=== PATIENT | female | born 1985 | race African-American/Black ===

== ENCOUNTER 2016-09-02 20:04 | Emergency (ER) | payer MEDICAID, OTHER ==
[~2016-09-02] VITALS: Ht 167.6 cm; Wt 60.8 kg
[~2016-09-02 20:04] MED LIST: CIPRO500 MG PO; CIPROFLOXACIN500 M2 ORAL; CYCLOBENZAPRINE10 MG ORAL; DIPHENHYDRAMINE25 M1 ORAL; FLAGYL500 MG ORAL; GLUCOPHAGE500 MG ORAL; HUMULIN R100 UNIT/1 SUBQ; JANUVIA100 MG ORAL; KEFLEX500 MG ORAL; METFORMIN HCL500 M1 ORAL; METROGEL-VAGINA70 G1 VAGIN; NKM; NORCO 5-325 TA1 EACH ORAL; NOVOLOG100 UNIT/3 SUBQ; OMEPRAZOLE20 M2 ORAL; PYRIDIUM100 MG ORAL; REGLAN10 MG ORAL; STARLIX120 MG ORAL; TRAMADOL HCL50 MG ORAL; VICODIN1 TA1 ORAL; ZOFRAN4 MG ORAL
[2016-09-02] MEDS ORDERED: HYDROCODON-ACE1 EA15 ORAL (21:30)
[2016-09-02] MEDS ORDERED: BENADRYL25 MG ORAL (21:30)
--- NOTE | 2016-09-02 21:31 | Emergency Room Report ---
History of Present Illness General Chief Complaint: Back Pain-No Injury Source: Patient Present Illness HPI A 30-year-old female with a history of diabetes. She presents with chief complaint of left leg/calf pain for last week. [place]art tightness. On and off. Also with back pain. No fever chills no nausea no vomiting. Denies any other complaint. Pain is 7/10. Allergies: Coded Allergies: CODEINE (Verified Allergy, Mild, 06/17/14) IBUPROFEN (Verified Allergy, Mild, Hives, 07/20/12) ACETAMINOPHEN (Verified Allergy, Unknown, 12/10/14) HYDROCODONE (Verified Allergy, Unknown, 12/10/14) Patient History Past Medical History: see triage record, old chart reviewed, DM Past Surgical History: other Pertinent Family History: none Social History: Denies: smoking Last Menstrual Period: a month ago Now: No Immunizations: other Reviewed Nursing Documentation: PMH: Agreed, PSxH: Agreed Nursing Documentation-PMH Hx Cardiac Problems: Yes - Abnormal Heart beat Hx Diabetes: Yes Hx Gastrointestinal Problems: Yes - Gallbladder removed Hx Headaches: Yes Review of Systems Eye: Denies: blurred vision, eye pain ENT: Denies: ear pain, nose congestion, throat swelling Respiratory: Denies: cough, shortness of breath Cardiovascular: Denies: chest pain, palpitations Gastrointestinal: Denies: abdominal pain, diarrhea, nausea, vomiting Musculoskeletal: Reports: back pain, Denies: joint pain Skin: Denies: rash Neurological: Denies: headache, numbness Endocrine: Denies: increased thirst, increased urine Hematologic/Lymphatic: Denies: easy bruising All Other Systems: negative except mentioned in HPI Physical Exam Vital Signs Date Time Temp Pulse Resp B/P Pulse Ox O2 Delivery O2 Flow Rate FiO2 09/02/16 20:17 97.9 64 16 111/74 100 Room Air vitals normal Sp02 EP Interpretation: reviewed, normal General Appearance: well appearing, no apparent distress, alert Head: normocephalic, atraumatic Eyes: bilateral eye EOMI, bilateral eye PERRL ENT: hearing grossly normal, normal pharynx Neck: full range of motion, supple, no meningismus Respiratory: chest non-tender, lungs clear, normal breath sounds Cardiovascular #1: regular rate, rhythm, no murmur Gastrointestinal: normal bowel sounds, non tender, no mass, no organomegaly, no bruit, non-distended Musculoskeletal: back normal, gait/station normal, normal range of motion, other - Tenderness to the lateral left calf area. Mild edema. Neurologic: alert, oriented x3 Psychiatric: mood/affect normal Skin: warm/dry Medical Decision Making Diagnostic Impression: Primary Impression: Back pain Qualified Codes: M54.5 - Low back pain Additional Impression: Leg pain, left ER Course Is presents with different pain complaint. No evidence of any fracture dislocation. No evidence of DVT. This may be a neuropathy. We'll discharge home. CT/MRI/US Diagnostic Results CT/MRI/US Diagnostic Results : Imaging Test Ordered: Ultrasound left leg Impression negative for DVT per epic trainer. Last Vital Signs Date Time Temp Pulse Resp B/P Pulse Ox O2 Delivery O2 Flow Rate FiO2 09/02/16 20:17 97.9 64 16 111/74 100 Room Air Status: improved Disposition: HOME, SELF-CARE Condition: Stable Scripts Diphenhydramine Hcl* (BENADRYL*) 25 Mg Capsule 25 MG ORAL Q6H Y for Itching, #20 CAP Prov: JEANETTE AMADO M.D. 09/02/16 Hydrocodone/Acetaminophen 5-325* (HYDROCODONE/ACETAMINOPHEN 5-325*) 1 Each Tablet 1 TAB ORAL Q6H Y for For Pain, #15 TAB 0 Refills Prov: JEANETTE AMADO M.D. 09/02/16 Referrals: [facility],REFERRING (PCP) Patient Instructions: Back Pain, Adult Additional Instructions: Followup with your Dr. in 7 days. Return if symptom worsen. JEANETTE AMADO M.D. Sep 02, 2016 21:30
[2016-09-02 22:40] VITALS: BP 118/78
--- NOTE | 2016-09-04 12:27 | Diagnostic Imaging Report ---
APPROVED REPORT CPT Code: 16672 Present Symptoms Lower Extremity Pain: Left LEFT LEG: Imaging reveals a patent deep venous system . There is no evidence of thrombus within the femoral, popliteal or tibial segments. The greater saphenous veins are also within normal limits. Doppler indicates normal spontaneous flow within these segments.
== END 2016-09-02 22:41 | disposition home or self-care (01) ==
LOC: EMR 20:42
DX: M79.605 Pain in left leg (principal); M54.5 Low back pain; E11.9 Type 2 diabetes mellitus without complications; Z88.6 Allergy status to analgesic agent
CPT/HCPCS: 93971; 99284

== ENCOUNTER 2017-09-15 23:11 | Emergency (ER) | payer SELFPAY ==
[~2017-09-15] VITALS: Ht 167.6 cm; Wt 64.9 kg
[~2017-09-15 23:11] MED LIST changes: +BENADRYL25 MG ORAL; +HYDROCODON-ACE1 EA15 ORAL
[2017-09-15] MEDS ORDERED: Methocarbamol 750mg tab ORAL ONE (23:45)
[2017-09-15] MEDS ORDERED: Tylenol #3 tab (300mg/30mg) PO ONE (23:45)
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
[2017-09-16 00:10] LABS: BILIRUBIN, URINE NEGATIVE (NEGATIVE); GLUCOSE, URINE (UA) NEGATIVE (NEGATIVE); KETONES,URINE NEGATIVE (NEGATIVE); LEUKOCYTE ESTERASE ,URINE 1+ (NEGATIVE); NITRITE,URINE NEGATIVE (NEGATIVE); PH,URINE 6 (4.5-8.0); PROTEIN,URINE NEGATIVE (NEGATIVE); UROBILINOGEN,URINE NORMAL MG/DL (0.0-1.0)
[2017-09-16 00:20] VITALS: BP 120/71
[2017-09-16 00:24] LABS: APPEARANCE,URINE SLIGHTLY CLOUDY; COLOR,URINE YELLOW
[2017-09-16] MEDS ORDERED: METRONIDAZOLE500 MG ORAL (01:24)
[2017-09-16] MEDS ORDERED: ACETAMINOPHEN-1 EAC1 ORAL (01:24)
[2017-09-16] MEDS ORDERED: ROBAXIN-750750 MG PO (01:24)
[2017-09-16 01:30] VITALS: BP 120/71
--- NOTE | 2017-09-16 09:49 | Diagnostic Imaging Report ---
Indication: Pain in left hip for 2 days Technique: 2 views of the left hip Comparison: none Findings: No acute fractures. No dislocations. The joint spaces are preserved. An intrauterine device is noted Impression: No acute process This agrees with the preliminary interpretation provided by the emergency room physician
== END 2017-09-16 01:30 | disposition home or self-care (01) ==
LOC: EMR 23:46
DX: M25.552 Pain in left hip (principal); A59.9 Trichomoniasis, unspecified; E11.9 Type 2 diabetes mellitus without complications
CPT/HCPCS: 73502; 81001; 81025; 99283

== ENCOUNTER 2018-05-04 14:48 | Emergency (ER) | payer MEDICAID, OTHER ==
[~2018-05-04] VITALS: Ht 167.6 cm; Wt 61.2 kg
[~2018-05-04 14:48] MED LIST changes: +ACETAMINOPHEN-1 EAC1 ORAL; +METRONIDAZOLE500 MG ORAL; +ROBAXIN-750750 MG PO
[2018-05-04 15:03] VITALS: BP 129/93
[2018-05-04] MEDS ORDERED: ZOFRAN4 M1 ORAL (15:06)
[2018-05-04] MEDS ORDERED: ZITHROMAX500 MG ORAL (15:06)
[2018-05-04] MEDS ORDERED: TESSALON PERLE100 MG ORAL ×2 (15:06→16:20)
--- NOTE | 2018-05-04 15:10 | NUR ---
ED Nurse Note: Patient walked into ED c/o allergic reaction to atb for pneumonia. patient c/o swollen throat, generalized body pain, coughing, runny nose for 4 weeks. patient reports phlegm. a/o x4, ambulaotry.
[2018-05-04] MEDS ORDERED: Albuterol ud Inhalation HHN ONE (15:45)
--- NOTE | 2018-05-04 16:19 | Emergency Room Report ---
History of Present Illness General Chief Complaint: Flu Like Symptoms Source: Patient Present Illness HPI 32-year-old female with no significant past medical history here complaining of 10 days of continuous cough with green phlegm. Patient reports that she went to an urgent care a few days ago and was treated with azithromycin for bronchitis. Has not been taking any cough medications. Patient reports worsening cough and wheezing. She also reports that she is not tolerating the azithromycin very well. Denies new onset of fever, congestion, chest pain, palpitations, abdominal pain, nausea vomiting diarrhea. Patient denies history of smoking. Allergies: Coded Allergies: CODEINE (Verified Allergy, Mild, 06/17/14) IBUPROFEN (Verified Allergy, Mild, Hives, 07/20/12) ACETAMINOPHEN (Verified Allergy, Unknown, 12/10/14) HYDROCODONE (Verified Allergy, Unknown, 12/10/14) Patient History Past Medical History: see triage record Past Surgical History: unable to obtain Pertinent Family History: none Now: No Reviewed Nursing Documentation: PMH: Agreed; PSxH: Agreed Nursing Documentation-PMH Hx Cardiac Problems: Yes - Abnormal Heart beat Hx Diabetes: Yes Hx Gastrointestinal Problems: Yes - Gallbladder removed Hx Headaches: Yes Review of Systems All Other Systems: negative except mentioned in HPI Physical Exam Vital Signs Date Time Temp Pulse Resp B/P (MAP) Pulse Ox O2 Delivery O2 Flow Rate FiO2 05/04/18 15:03 98.4 83 20 129/93 99 Room Air 05/04/18 15:44 21 Sp02 EP Interpretation: reviewed General Appearance: well appearing Head: normocephalic, atraumatic Eyes: bilateral eye normal inspection, bilateral eye PERRL ENT: normal pharynx, no angioedema, TMs + canals normal, uvula midline, pharyngeal erythema Neck: normal inspection, supple Respiratory: no rhonchi, no respiratory distress, wheezing - diffuse Cardiovascular #1: normal inspection, normal peripheral pulses, no edema Gastrointestinal: normal inspection, soft Musculoskeletal: normal inspection Neurologic: normal inspection, alert Psychiatric: normal inspection, judgement/insight normal Skin: normal inspection, no rash Lymphatic: normal inspection, no adenopathy Medical Decision Making PA Attestation all diagnosis and treatment plans were reviewed and discussed with my supervising physician Dr Drew Diagnostic Impression: Primary Impression: Bronchitis ER Course 32-year-old female with no significant past medical history here complaining of 10 days of continuous cough with green phlegm. Patient reports that she went to an urgent care a few days ago and was treated with azithromycin for bronchitis. Has not been taking any cough medications. Patient reports worsening cough and wheezing. She also reports that she is not tolerating the azithromycin very well. Denies new onset of fever, congestion, chest pain, palpitations, abdominal pain, nausea vomiting diarrhea. Patient denies history of smoking. Ddx considered but are not limited to bronchitis, pneumonia, asthma exacerbation Vital signs: are WNL, pt. is afebrile H&PE are most consistent with bronchitis ORDERS: nebulizer albuterol, ventolin HFA, augmentin, mikel denise ED INTERVENTIONS: albuterol neb DISCHARGE: At this time pt. is stable for d/c to home. Will provide printed patient care instructions, and any necessary prescriptions. Care plan and follow up instructions have been discussed with the patient prior to discharge. stop azithromycin Last Vital Signs Date Time Temp Pulse Resp B/P (MAP) Pulse Ox O2 Delivery O2 Flow Rate FiO2 05/04/18 15:44 21 05/04/18 15:44 80 16 Room Air 05/04/18 15:44 98 05/04/18 15:03 98.4 129/93 Disposition: HOME, SELF-CARE Condition: Stable Scripts Benzonatate* (TESSALON PERLE*) 100 Mg Capsule 100 MG ORAL THREE TIMES A DAY, #20 PERLE Prov: Sam Wiseman 05/04/18 Albuterol Sulfate (VENTOLIN HFA) 18 Gm Hfa.aer.ad 2 PUFFS INH EVERY 6 HOURS, #18 GM 0 Refills Prov: Sam Wiseman 05/04/18 Amoxicillin/Potassium Clav 875-125* (AUGMENTIN 875-125 TABLET*) 1 Each Tablet 1 TAB ORAL TWICE A DAY for 10 Days, #20 TAB Prov: Sam Wiseman 05/04/18 Patient Instructions: Acute Bronchitis, [id number] Sam Wiseman May 04, 2018 16:19
[2018-05-04] MEDS ORDERED: VENTOLIN HFA18 GM INH (16:20)
[2018-05-04] MEDS ORDERED: AUGMENTIN 875-1 EAC1 ORAL (16:20)
[2018-05-04 16:31] VITALS: BP 133/75
--- NOTE | 2018-05-04 16:31 | NUR ---
ED Nurse Note: Pt cleared for discharge by [facility]. [facility]CI/prescription given and explained to pt and she verbalized understanding of teachings. ID band removed. Pt is AAO x4, ambulatory and left with her belongings.
== END 2018-05-04 16:45 | disposition home or self-care (01) ==
LOC: EMR 15:41
DX: J40 Bronchitis, not specified as acute or chronic (principal); E11.9 Type 2 diabetes mellitus without complications; Z88.6 Allergy status to analgesic agent; Z88.5 Allergy status to narcotic agent
CPT/HCPCS: 94640; 94664; 99284

== ENCOUNTER 2018-12-17 17:57 | Emergency (ER) | payer MEDICAID, OTHER ==
[~2018-12-17] VITALS: Ht 167.6 cm; Wt 72.1 kg
[~2018-12-17 17:57] MED LIST changes: +AUGMENTIN 875-1 EAC1 ORAL; +TESSALON PERLE100 MG ORAL; +VENTOLIN HFA18 GM INH; +ZITHROMAX500 MG ORAL; +ZOFRAN4 M1 ORAL
[2018-12-17 18:00] VITALS: BP 119/59
[2018-12-17] MEDS ORDERED: NKM (18:05)
[2018-12-17 18:11] VITALS: BP 119/59
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
[2018-12-17] MEDS ORDERED: ROBAXIN-750750 MG PO (18:33)
[2018-12-17] MEDS ORDERED: LIDODERM700 M1 TOPIC (18:33)
[2018-12-17 19:08] VITALS: BP 119/59
--- NOTE | 2018-12-17 19:12 | NUR ---
ER DISCHARGE NOTE: Patient is cleared to be discharged per ER Michela REDMOND, pt is aox4, on room air, with stable vital signs. pt was given dc and prescription instructions, pt was able to verbalize understanding, pt id band removed without complications. pt is able to ambulate with steady gait. pt took all belongings.
== END 2018-12-17 19:00 | disposition home or self-care (01) ==
LOC: EMR 18:12
DX: M54.6 Pain in thoracic spine (principal); S29.012A Strain of muscle and tendon of back wall of thorax, initial encounter; X58.XXXA Exposure to other specified factors, initial encounter; Y93.9 Activity, unspecified; Y92.9 Unspecified place or not applicable; Z90.49 Acquired absence of other specified parts of digestive tract; Z88.6 Allergy status to analgesic agent; Z88.5 Allergy status to narcotic agent
CPT/HCPCS: 99282